=== PATIENT | male | born 1975 | race Two or more races ===

== ENCOUNTER 2017-06-06 12:53 | Emergency (ER) | payer OTHER ==
[2017-06-06 13:01] VITALS: BP 139/91; PULSE 98; TEMP 98.6; BMI 23.3
--- NOTE | 2017-06-06 13:27 | PDOC ---
History of Present Illness - General Chief Complaint: Pain Stated Complaint: LT FOOT SWELLING Time Seen by Provider: 06/06/17 13:10 History Source: Patient Exam Limitations: No Limitations - History of Present Illness Initial Comments: CHIEF COMPLAINT: 41 y/o afebrile male with no significant PMH c/o atraumatic left foot pain and swelling x 4 days. HISTORY OF PRESENT ILLNESS: The patient states that 4 days ago he started having pain in his left foot. He changed his shoes multiple times but the pain never got better. Last night the area started swelling and became red. He denies fever and trauma to the area. He did not drop anything on his foot. Vital signs on arrival are within normal limits. REVIEW OF SYSTEMS: GENERAL/CONSTITUTIONAL: No fever/chills. No weakness. No weight change. MUSCULOSKELETAL: +right foot pain and swelling. No neck or back pain. SKIN: No rash or easy bruising. NEUROLOGIC: No headache, vertigo, loss of consciousness, or loss of sensation. PHYSICAL EXAM: VITAL_SIGNS: within normal limits GENERAL_APPEARANCE: alert, cooperative, no obvious discomfort. pt is ambulatory. MENTAL_STATUS: speech clear, oriented X 3, responds appropriately to questions. NEURO: motor intact and sensory intact in injured extremity. EXTREMITIES: good pulse in injured extremity. Dorsal surface of left foot has moderate edema, is erythematous and warm. TTP of left 3rd and 4th distal tarsals. Full ROM of affected foot, ankle and toes. No streaking. No obvious deformity. SKIN: warm, dry, good color. Past History - Past Medical History Allergies/Adverse Reactions: Allergies Allergy/AdvReac Type Severity Reaction Status Date / Time No Known Allergies Allergy Verified 06/06/17 12:58 Home Medications: Ambulatory Orders NK [No Known Home Medication] 06/06/17 COPD: No Other medical history: denies. - Suicide/Smoking/Psychosocial Hx Smoking History: Current every day smoker Have you smoked in the past 12 months: Yes Number of Cigarettes Smoked Daily: 30 Information on smoking cessation initiated: No *Physical Exam - Vital Signs Last Vital Signs Temp Pulse Resp BP Pulse Ox 98.6 F 98 H 17 139/91 98 06/06/17 12:58 06/06/17 12:58 06/06/17 12:58 06/06/17 12:58 06/06/17 12:58 Medical Decision Making - Medical Decision Making A/P: 41 y/o male with left foot pain and swelling. Plan is as follows: 1. Left foot xray Left foot xray IMPRESSION: No acute pathology. Suspect the patient's are related to arthritis. Suggested MOtrin, ice and compression. Provided an DIANA bandage and suggested comfortable shoes until symptoms improve. Instructed him to return to the ER if he develops fever, worsening of redness or streaking. The patient verbalizes understanding of all instructions, has no further questions and is awaiting discharge. *DC/Admit/Observation/Transfer Diagnosis at time of Disposition: Osteoarthritis of foot, left Qualifiers: Osteoarthritis type: unspecified Qualified Code(s): M19.072 - Primary osteoarthritis, left ankle and foot - Discharge Dispostion Disposition: HOME Condition at time of disposition: Good - Referrals Referrals: ON STAFF,NOT [Primary Care Provider] - Salinas Ralph MD [Staff Physician] - 1 week (follow up if no improvement) - Patient Instructions Printed Discharge Instructions: DI for Osteoarthritis, How To Perform RICE ( Rest, Ice, Compress, Elevate) Additional Instructions: Discharge Instructions: -Your xray was normal and showed no broken bones -Please use DIANA bandage for comfort -Please take over the counter motrin for pain and swelling -Follow RICE instructions -Wear comfortable shoes until symptoms improve -Follow up with Dr. Ralph if symptoms continue -Return to the ER if redness spreads, you develop streaking or a fever - Post Discharge Activity
== END 2017-06-06 14:19 | disposition home or self-care (01) ==
LOC: JERFT 12:53
DX: M19.072 Primary osteoarthritis, left ankle and foot (principal); F17.210 Nicotine dependence, cigarettes, uncomplicated
CPT/HCPCS: 73610-TC-LT-FY; 73630-TC-LT; 99281-25